=== PATIENT | male | born 1955 | race Hispanic/Latino ===

== ENCOUNTER 2018-03-07 15:08 | Emergency (ER) | payer OTHER ==
--- NOTE | 2018-03-07 16:50 | RAD REPORT ---
EXAM DESCRIPTION: RAD - Tib Fib Left - 03/07/2018 4:36 pm CLINICAL HISTORY: Dog bite to the leg COMPARISON: None. FINDINGS: No fracture is identified. There is no dislocation or periosteal reaction noted. No acute or destructive bone process seen. Surgical hardware is in place in the proximal tibia and shaft. Bone remodeling is present from this prior fracture repair. No active process suspected. No air or foreign body seen in the soft tissues. Degenerative changes are present at the knee joint. IMPRESSION: No acute bone finding. No air or foreign body in the soft tissues.
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
[2018-03-07 17:18] VITALS: TEMP 97.3
[2018-03-07 17:19] VITALS: BP 123/73; O2SAT 99
== END 2018-03-07 17:11 | disposition home or self-care (01) ==
LOC: ER 15:08
DX: S81.832A Puncture wound without foreign body, left lower leg, initial encounter (principal); W54.0XXA Bitten by dog, initial encounter; Y93.9 Activity, unspecified; Y92.009 Unspecified place in unspecified non-institutional (private) residence as the place of occurrence of the external cause; F17.210 Nicotine dependence, cigarettes, uncomplicated
CPT/HCPCS: 99283

== ENCOUNTER 2018-04-01 11:27 | Emergency (ER) | payer OTHER ==
[2018-04-01 12:36] LABS: Absolute Lymphocytes (CBC) 0.6 K/uL (0.7-4.9); Absolute Monocytes 0.6 K/uL (0.1-1.3); Absolute Neutrophil 4.6 K/uL (1.8-8.0); Basophils % 0.1 % (0-1.3); Eosinophils % 0.1 % (0-4.4); Hematocrit 43.5 % (39.6-49.0); Lymphocytes % 9.9 % (15.3-44.8); MCH 30.5 pg (27.0-35.0); MCV 85.3 fL (80-100); MPV 8.4 fL (7.6-11.3); Monocytes % 9.6 % (3.3-12.3); RBC Red Blood Cell Count 5.11 M/uL (4.33-5.43)
[2018-04-01 12:38] LABS: Albumin 3.5 g/dL (3.4-5.0); Bilirubin Direct 0.1 mg/dL (0-0.2); Bilirubin Total 0.6 mg/dL (0.2-1.0); Potassium 3.2 mmol/L (3.5-5.1); Protein, Total 7.6 g/dL (6.4-8.2)
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
[2018-04-01 13:36] VITALS: BP 155/90; TEMP 98.5; O2SAT 97
== END 2018-04-01 13:29 | disposition home or self-care (01) ==
LOC: ER 11:27
DX: R10.9 Unspecified abdominal pain (principal); F17.210 Nicotine dependence, cigarettes, uncomplicated
CPT/HCPCS: 36415; 80048; 80076; 83690; 85025; 99283

== ENCOUNTER 2020-01-09 12:25 | Emergency (ER) | payer OTHER ==
[2012-02-27 19:50] VITALS: BP 127/85
--- NOTE | 2020-01-09 12:35 | ER ---
Nurse's Notes [facility] Name: Librado Valdez Age: 64 yrs Sex: Male : 1955 Arrival Date: 01/09/2020 Time: 12:26 Bed Waiting Private MD: Diagnosis: ED Course: 01/08 12:26 Patient arrived in ED. am2 Administered Medications: No medications were administered Outcome: 12:35 Patient left the ED. ll1 Signatures: Elaina Mullen am2 Rene Bravo, RN RN ll1
== END 2020-01-09 12:35 | disposition left against medical advice (07) ==
LOC: ER 12:25
DX: Z53.21 Procedure and treatment not carried out due to patient leaving prior to being seen by health care provider (principal)

== ENCOUNTER 2020-06-26 12:33 | Inpatient (IN) | payer OTHER ==
[2020-06-26 13:28] LABS: Absolute Lymphocytes (CBC) 1.2 K/uL (0.7-4.9); Basophils % 0.4 % (0-1.3); Hematocrit 44.1 % (39.6-49.0); Lymphocytes % 12.4 % (15.3-44.8); MPV 9.1 fL (7.6-11.3); RBC Red Blood Cell Count 5.04 M/uL (4.33-5.43)
[2020-06-26 13:56] LABS: Albumin 3.7 g/dL (3.4-5.0); Bilirubin Direct 0.1 mg/dL (0-0.2); Bilirubin Total 0.7 mg/dL (0.2-1.0); Potassium 4.3 mmol/L (3.5-5.1); Protein, Total 7.5 g/dL (6.4-8.2)
--- NOTE | 2020-06-26 13:59 | RAD REPORT ---
EXAM DESCRIPTION: CT - Abdomen Pelvis W Contrast - 06/26/2020 1:42 pm CLINICAL HISTORY: Abdominal pain COMPARISON: none. TECHNIQUE: Computed axial tomography of the abdomen pelvis was obtained. 100 cc Isovue-300 was admin istered intravenously. Oral contrast was not requested which limits evaluation of bowel. All CT scans are performed using dose optimization technique as appropriate and may include automated exposure control or mA/KV adjustment according to patient size. FINDINGS: The liver, spleen, pancreas, adrenal and left kidney appear unremarkable. Small nonobstruc ting right renal calculi There is no evidence of diverticulitis. Large left inguinal hernia contains sigmoid colon. Large right inguinal hernia contains fat. Colon within the lower anterior mediastinum presumably a colonic interposition for esophageal resecti on. Moderate dilatation of jejunum and portion of ileum. Distal ileum normal caliber. This is compatible with an obstruction. Prostate gland is moderately enlarged Ventral hernia several centimeters above the emboli kiss contains fat. The neck measures 2 centimeter s Metallic densities right pelvis IMPRESSION: Obstruction in the region of the mid ileum Large left inguinal hernia contains colon Large right inguinal hernia contains fat
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
[2020-06-26] MEDS ORDERED: NA CHLORIDE 0.9% 1,000 ML ONE (14:49)
[2020-06-26] MEDS ORDERED: MORPHINE 4 MG/ML SYR ONE (14:49)
[2020-06-26] MEDS ORDERED: ONDANSETRON 4 MG/2 ML VIAL ONE (14:49)
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
[2020-06-26] MEDS ORDERED: ONDANSETRON 4 MG/2 ML VIAL IV PRN (16:51)
[2020-06-26] MEDS ORDERED: SODIUM CHLORIDE 0.9% 10ML INJ IV PRN (16:51)
[2020-06-26] MEDS ORDERED: ACETAMINOPHEN 650MG/RECT SUPP PR PRN (16:51)
[2020-06-26] MEDS ORDERED: ACETAMINOPHEN 500 MG TAB PO PRN (16:51)
[2020-06-26] MEDS ORDERED: MORPHINE 2 MG/ML SYR IV PRN (16:51)
[2020-06-26] MEDS: D5 0.9 NS 1,000 ML IV SCH (17:06)
[2020-06-26 17:29] VITALS: BMI 25.7
[2020-06-26 18:40] LABS: Urine Appearance CLEAR; Urine Bilirubin NEGATIVE (NEG); Urine Blood NEGATIVE (NEG); Urine Color YELLOW; Urine Glucose NEGATIVE (NEG); Urine Protein NEGATIVE (NEG); Urine Specific Gravity >=1.030 (1.005-1.030); Urine Urobilinogen 0.2 mg/dL (0.2-1.0)
[2020-06-26 18:42] LABS: Urine Microscopic Reflex NO UMIC
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
[2020-06-27] MEDS: D5 0.9 NS 1,000 ML IV SCH ×4 (03:00→22:51)
[2020-06-27 05:47] LABS: Absolute Lymphocytes (CBC) 1.4 K/uL (0.7-4.9); Basophils % 0.5 % (0-1.3); Hematocrit 40.6 % (39.6-49.0); MPV 9.5 fL (7.6-11.3)
[2020-06-27 06:01] LABS: Magnesium 2.3 mg/dL (1.8-2.4); Potassium 3.6 mmol/L (3.5-5.1)
[2020-06-27] MEDS: ENOXAPARIN 40 MG/0.4 ML SQ SCH (08:43)
[2020-06-27] MEDS ORDERED: PANTOPRAZOLE 40 MG INJ IVP SCH (09:00)
[2020-06-27] MEDS ORDERED: KCL 20 MEQ/100 mL IVPB 20 MEQ/100 ML BAG IV SCH (09:00)
--- NOTE | 2020-06-27 11:09 | P.PN ---
Subjective Date of Service: 06/27/20 Primary Care Provider: none Chief Complaint: Small-bowel obstruction Subjective: Improving (Patient is doing much better denies any complain he is passing gas) Review of Systems Unremarkable Physical Examination - Vital Signs Temperature: 97.3 F Blood Pressure: 123/72 Pulse: 55 Respirations: 14 Pulse Ox (%): 95 - Physical Exam General: Alert, In no apparent distress, Oriented x3 Gastrointestinal: Normal bowel sounds, Tenderness (Minimal tenderness in the left lower quadrant) - Studies Laboratory Data (last 24 hrs) 06/26/20 13:20: WBC 10.0, Hgb 15.3, Hct 44.1, Plt Count 217 06/26/20 13:20: Sodium 138, Potassium 4.3, BUN 13, Creatinine 1.12, Glucose 112 H, Total Bilirubin 0.7, AST 24, ALT 25, Alkaline Phosphatase 80, Lipase 57 L Assessment & Plan - Problems (Diagnosis) (1) Small bowel obstruction Current Visit: Yes Status: Acute Plan: Patient is 64 years of age admitted with small-bowel obstruction this currently doing much better had obstruction in the mid ileum with a large inguinal hernia as CBC chemistries unremarkable apart from mild elevation of pro calcitonin vital signs all stable discuss with general surgery regarding further management possible discharge. ELAINE Bills. advance diet. for now repeat xray. Decsion about discharge based on ability to tolerate full meal this evening, KUB Discharge Plan: Home Plan to discharge in: 24 Hours
--- NOTE | 2020-06-27 19:13 | PN ---
Diagnoses: History of bowel obstruction. Subjective: Patient is doing better, ambulating. No shortness of breath. No chest pain. No fever. No melena. No hematochezia. He says he is passing flatus since yesterday and he feels better. He wants some diet. Physical Examination: Chest: Clear. Abdomen: Soft and depressible. No guarding or rebound. Laboratory Data: Blood work shows WBC count of 4.6. Plan: Clear liquid diet. If he fails that, then once again n.p.o. He wants to be discharged this a fternoon if possible, but with bowel obstruction and not been able to fit as fast as he wants, I meche valles it is going too fast. We will see how he does today with diet and then we will proceed according ly. PRATIK/IFTIKHAR Voice ID: [id number] Report ID: [id number]
[2020-06-28] MEDS: D5 0.9 NS 1,000 ML IV SCH ×2 (03:56→08:51)
[2020-06-28 06:28] LABS: Absolute Lymphocytes (CBC) 1.8 K/uL (0.7-4.9); Basophils % 0.5 % (0-1.3); Hematocrit 42.2 % (39.6-49.0); Lymphocytes % 33.6 % (15.3-44.8); MPV 9.5 fL (7.6-11.3); RBC Red Blood Cell Count 4.73 M/uL (4.33-5.43)
[2020-06-28 06:33] LABS: Magnesium 2.3 mg/dL (1.8-2.4); Potassium 3.6 mmol/L (3.5-5.1)
[2020-06-28] MEDS ORDERED: POTASSIUM 25 MEQ EFFERV TAB PO ONE (09:00)
--- NOTE | 2020-06-28 09:08 | RAD REPORT ---
EXAM DESCRIPTION: RAD - Abdomen Single View - 06/28/2020 8:53 am CLINICAL HISTORY: follow up bowel obstruction COMPARISON: Abdomen Pelvis W Contrast dated 06/26/2020 FINDINGS: No free air or pneumatosis have developed. Colon bowel gas is seen overlying the medial ri ght lung base. This is a known area of herniation or eventration matching the CT study. Bowel gas in the left inguinal canal is noted. This matches the bowel containing left inguinal hernia on the CT st udy. Small bowel dilatation pattern is not substantially different from the CT study. IMPRESSION: No free air or pneumatosis have developed. Small bowel dilatation pattern not significan tly different from prior day study. Diaphragm and left inguinal hernia changes are again noted.
[2020-06-28 09:22] VITALS: O2SAT 98
[2020-06-28] MEDS: ENOXAPARIN 40 MG/0.4 ML SQ SCH (09:27)
--- NOTE | 2020-06-28 10:05 | P.PN ---
Subjective Date of Service: 06/28/20 Primary Care Provider: none Chief Complaint: Small-bowel obstruction Subjective: Improving (Improving still complaining of abdominal discomfort able to tolerate a meal has been passing gas no significant dilatation on KUB) Review of Systems Unremarkable Physical Examination - Vital Signs Temperature: 96.4 F Blood Pressure: 136/66 Pulse: 59 Respirations: 17 Pulse Ox (%): 95 - Physical Exam General: Alert, In no apparent distress, Oriented x3 Respiratory: Clear to auscultation bilaterally Cardiovascular: No edema Gastrointestinal: Normal bowel sounds, Soft and benign, Non-distended, No tenderness - Studies Laboratory Data (last 24 hrs) 06/28/20 05:48: Sodium 142, Potassium 3.6, BUN 4 L, Creatinine 0.86, Glucose 89, Magnesium 2.3 06/28/20 05:48: WBC 5.3 D, Hgb 14.3, Hct 42.2, Plt Count 188 Microbiology Data (last 24 hrs): 06/26/20 18:20 Nasopharnyx Coronavirus COVID-19 PCR - Final Assessment & Plan - Problems (Diagnosis) (1) Small bowel obstruction Current Visit: Yes Status: Acute Plan: Patient admitted with small-bowel obstruction tolerating a diet he has had multiple surgeries before the UB does not show any significant change discharge instructions as per Dr. Bills vital signs are all stable
--- NOTE | 2020-06-28 14:12 | PN ---
Date of Progress Note: 06/28/2020 Diagnosis: Small bowel obstruction. Subjective: The patient is feeling better, had a bowel movement, passing flatus and tolerating diet. I noticed that he is taking some diet from outside. He was advised the importance to be compliant with treatment and improper diet. Objective: Abdomen: Benign. Extremities: No calf tenderness. The patient feels good. Laboratory Data: WBC count is 5.3. Plan: The patient wants to go home. 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 He wants to go home, so we are going to leave the restrictions and the primary doctor will send him home. PRATIK/IFTIKHAR Voice ID: [id number] Report ID: [id number]
--- NOTE | 2020-06-28 18:01 | P.DS ---
Admission Date: 06/28/20 Discharge Date: 06/28/20 Primary Care Provider: none Disposition: ROUTINE DISCHARGE Discharge Condition: GOOD Reason for Admission: Small-bowel obstruction Consultations: Marcie - Problems (1) Small bowel obstruction Status: Acute Brief History of Present Illness: AW subacute small bowel obstruction Hospital Course: Admitted. S/B Dr. Bills. Pain improved. Stableat the time of discharge. To F/u with Dr. Bills Vital Signs/Physical Exam: Temp Pulse Resp BP Pulse Ox 97.9 F 54 17 153/80 H 97 06/28/20 12:00 06/28/20 12:00 06/28/20 12:00 06/28/20 12:00 06/28/20 12:00 Laboratory Data at Discharge: WBC 5.3 K/uL (4.3-10.9) D 06/28/20 05:48 Hgb 14.3 g/dL (13.6-17.9) 06/28/20 05:48 Hct 42.2 % (39.6-49.0) 06/28/20 05:48 Plt Count 188 K/uL (152-406) 06/28/20 05:48 Sodium 142 mmol/L (136-145) 06/28/20 05:48 Potassium 3.6 mmol/L (3.5-5.1) 06/28/20 05:48 BUN 4 mg/dL (7-18) L 06/28/20 05:48 Creatinine 0.86 mg/dL (0.55-1.3) 06/28/20 05:48 Glucose 89 mg/dL (74-106) 06/28/20 05:48 Magnesium 2.3 mg/dL (1.8-2.4) 06/28/20 05:48 Total Bilirubin 0.7 mg/dL (0.2-1.0) 06/26/20 13:20 AST 24 U/L (15-37) 06/26/20 13:20 ALT 25 U/L (12-78) 06/26/20 13:20 Alkaline Phosphatase 80 U/L (45-117) 06/26/20 13:20 Lipase 57 U/L (73-393) L 06/26/20 13:20 Home Medications: NK [No Home Meds] 06/26/20 Followup: Onur Bills MD [ACTIVE - CAN ADMIT] - NONE,NONE [Primary Care Provider] -
[2020-06-28 18:02] VITALS: BP 136/66; TEMP 96.4
== END 2020-06-28 14:18 | disposition home or self-care (01) | DRG 395 ==
LOC: ER 12:33 → ERHOLD 14:48 → 2ND 16:08 → OBSVTOIN 06-28 06:24
PROVIDERS: ADMIT Family Medicine; ATTEND Internal Medicine Sleep Medicine
DX: K40.00 Bilateral inguinal hernia, with obstruction, without gangrene, not specified as recurrent (principal); F17.210 Nicotine dependence, cigarettes, uncomplicated; K59.89 Other specified functional intestinal disorders; K40.90 Unilateral inguinal hernia, without obstruction or gangrene, not specified as recurrent; K43.9 Ventral hernia without obstruction or gangrene; F41.8 Other specified anxiety disorders; Z79.899 Other long term (current) drug therapy; Z91.5 Personal history of self-harm; Z20.828 Contact with and (suspected) exposure to other viral communicable diseases
CPT/HCPCS: 36415; 74018; 74177; 80048; 80076; 81003; 82565; 83605; 83690; 83735; 84145; 85025; 87040; 96361; 96374; 96375; 99285; C9113; G0378; J1650; J2405; J3480; J7030; J7042; Q9967; U0002

== ENCOUNTER 2021-10-19 16:29 | Emergency (ER) | payer OTHER ==
--- OUTSIDE RECORDS SUMMARY | 2021-10-19 16:32 | XMS REPORT | Continuity of Care Document ---
:1955 Author Organization [facility] t Address [facility] Michael [address] [place] [id number] Care Team Providers Name Role Phone GLENDA ROD Attending Clinician Unavailable NICOLÁS PEARSON Attending Clinician Unavailable Payers Payer Name Policy Type Policy Number Effective Date Expiration Date S price [employer] TeQ [id number] 2021 MEDICARE 00:00:00 [employer] [id number] 2021 2024 MEDICAID STAR PLUS 00:00:00 00:00:00 OON Problems This patient has no known problems. Allergies, Adverse Reactions, Alerts This patient has no known allergies or adverse reactions. Medications This patient has no known medications. Procedures This patient has no known procedures. Encounters Start End Encounter Admission Attending Care Care Encounter Source Date/Time Date/Time Type Type Clinicians Facility Department ID 2021-09-15 Outpatient [facility] [id number] [place] 15:17:24 Health [id number] [place] 11:21:03 GLENDA Health 2021-09-07 Outpatient [facility] [id number] [place] 15:23:01 Health 2021-09-07 Outpatient LILI, [facility] [id number] [place] 09:26:[address] [facility] Results This patient has no known results.
[2021-10-19 18:47] LABS: Absolute Lymphocytes (CBC) 1.8 K/uL (0.7-4.9); Hematocrit 40.6 % (39.6-49.0); Lymphocytes % 24.4 % (15.3-44.8); RBC Red Blood Cell Count 4.89 M/uL (4.33-5.43)
[2021-10-19 19:14] LABS: Potassium 3.5 mmol/L (3.5-5.1)
--- NOTE | 2021-10-19 19:28 | RAD REPORT ---
EXAM DESCRIPTION: [employer]3 7:17 pm CLINICAL HISTORY: left leg pain and swelling. COMPARISON: 2018 FINDINGS: Patient has a palpable area within the region of the left bobo. A a superficial fluid jonatan ection measuring 3 x 0.5 x 3.6 centimeters is present. Left common femoral, superficial femoral, popliteal and posterior tibial veins are compressible and demonstrate augmentation. Doppler demonstrates good flow. Grayscale, color and spectral analysis performed on all vessels IMPRESSION: No evidence of deep venous thrombosis involving the left lower extremity. 3.6 centimeter fluid collection subcutaneous tissues left bobo presumably an abscess
--- NOTE | 2021-10-19 19:31 | RAD REPORT ---
EXAM DESCRIPTION: Yenny Bueno Left10/19/2021 7:19 pm CLINICAL HISTORY: Left leg pain FINDINGS: Plate and screws affix old femoral and tibial fractures. No acute fracture seen. Old fibular fracture No bony destructive lesion
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
[2021-10-19 22:51] VITALS: TEMP 98.1
[2021-10-19 22:53] VITALS: O2SAT 100
[2021-10-19 22:54] VITALS: BP 154/87
== END 2021-10-19 20:45 | disposition home or self-care (01) ==
LOC: ER 16:29
DX: L03.116 Cellulitis of left lower limb (principal); F17.210 Nicotine dependence, cigarettes, uncomplicated
CPT/HCPCS: 36415; 80048; 85025; 93971; 99283

== ENCOUNTER 2023-04-02 00:05 | Emergency (ER) | payer OTHER ==
--- OUTSIDE RECORDS SUMMARY | 2023-04-02 00:08 | XMS REPORT | Continuity of Care Document ---
:1955 Author Organization [facility] t Address [address] [address] Care Team Providers Name Role Phone VIVIANE JOHNSON Attending Clinician Unavailable GLENDA ROD Attending Clinician Unavailable NICOLÁS PEARSON Attending Clinician Unavailable Payers Payer Name Policy Type Policy Number Effective Date Expiration Date S price [employer] [id number] 2021 MEDICARE 00:00:00 [employer] [id number] 2021 2024 MEDICAID STAR PLUS 00:00:00 00:00:00 OON Problems This patient has no known problems. Allergies, Adverse Reactions, Alerts This patient has no known allergies or adverse reactions. Medications This patient has no known medications. Procedures This patient has no known procedures. Encounters Start End Encounter Admission Attending Care Care Encounter Source Date/Time Date/Time Type Type Clinicians Facility Department ID 2022-06-10 Outpatient [facility] [id number] [place] 11:16:21 [id number] [facility] 2022-06-08 Outpatient [facility] [id number] [place] 09:20:16 [id number] [facility] 2021-12-03 Outpatient [facility] [id number] [place] 07:33:37 [id number] [facility] 2021-12-01 Outpatient [facility] [id number] [place] 09:56:40 [id number] [facility] 2021-11-02 Outpatient ALEX [facility] [id number] [place] 01:03:08 VIVIANE [id number] [facility] 2021-10-25 Outpatient MARCEL [facility] [id number] [place] 09:30:26 GLENDA [id number] [facility] 2021-10-21 Outpatient [facility] [id number] [place] 07:58:51 [id number] [facility] 2021-09-15 Outpatient [facility] [id number] [place] 15:17:24 Health 2021 Outpatient MARCEL, [facility] [id number] [place] 11:21:03 GLENDA [facility] 2021-09-07 Outpatient [facility] [id number] [place] 15:23:01 [facility] 2021[facility]09-07 [id number] [place] 09:26:54 [facility] Results This patient has no known results.
[2023-04-02 00:58] LABS: Absolute Lymphocytes (CBC) 1.9 K/uL (0.7-4.9); Hematocrit 43.3 % (39.6-49.0); Lymphocytes % 26.2 % (15.3-44.8); MCV 84.7 fL (80-100); MPV 8.4 fL (7.6-11.3); Platelets 196 thou/uL (152-406); RBC Red Blood Cell Count 5.11 M/uL (4.33-5.43)
[2023-04-02] MEDS ORDERED: MORPHINE 4 MG/ML SYR ONE ×2 (01:03→02:56)
[2023-04-02] MEDS ORDERED: NA CHLORIDE 0.9% 1,000 ML ONE ×2 (01:04→04:03)
[2023-04-02] MEDS ORDERED: ONDANSETRON 4 MG/2 ML VIAL ONE (01:04)
[2023-04-02] MEDS ORDERED: KETOROLAC 30 MG/ML INJ ONE ×2 (01:04→04:03)
[2023-04-02 01:17] LABS: Albumin 3.6 g/dL (3.4-5.0); Bilirubin Total 0.4 mg/dL (0.2-1.0); Potassium 3.6 mEq/L (3.5-5.1); Protein, Total 7.3 g/dL (6.4-8.2)
[2023-04-02 03:21] LABS: Specific Gravity 1.014 (1.005-1.030); Urine Bacteria None Seen /HPF (<20); Urine Bilirubin NEGATIVE (Negative); Urine Blood 2+ (Negative); Urine Clarity Clear (Clear); Urine Color Colorless (Yellow); Urine Glucose NEGATIVE (Negative); Urine Mucus Slight /HPF (None Seen); Urine Protein NEGATIVE (Negative); Urine Urobilinogen Normal (Normal)
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
[2023-04-02] MEDS ORDERED: TAMSULOSIN 0.4 MG SR CAP ONE (04:02)
[2023-04-02] MEDS ORDERED: HYDROMORPHONE HCL 1 MG/ML INJ ONE (04:02)
[2023-04-02] MEDS ORDERED: CEFTRIAXONE 1000 MG/VIAL ONE (04:03)
[2023-04-02 07:42] VITALS: O2SAT 92
[2023-04-02 07:58] VITALS: BP 151/84
--- NOTE | 2023-04-02 17:54 | RAD REPORT ---
EXAM DESCRIPTION: CT - Stone Protocol - 04/02/2023 6:54 am CLINICAL HISTORY: ABD PAIN TECHNIQUE: Contiguous axial images obtained through the abdomen and pelvis without IV contrast. Sagi ttal and coronal reformatted images were provided. This exam was performed according to our departmental dose-optimization program, which includes autom ated exposure control, adjustment of the mA and/or kV according to patient size and/or use of iterati ve reconstruction technique. COMPARISON: May 2020 FINDINGS: Lung bases: Atelectatic changes in the lung bases. Several calcified granuloma. Liver: Unremarkable Gallbladder and biliary system: Unremarkable Pancreas: Unremarkable Spleen: Unremarkable Adrenals: Unremarkable Kidneys: 7 mm stone in the distal right ureter with proximal right hydroureter and right hydronephros is. Additional stones in the right kidney measuring less than 3 mm. Gl: Segment of colon extending from the stomach to the anterior mediastinum, partially visualized and similar to the prior examination. Surgical changes in the epigastrium consistent with prior esophagectomy. No obstruction. No appreciable mucosal thickening. Appendix: No findings to suggest acute appendicitis. Urinary bladder: Unremarkable Reproductive: Enlarged prostate. Lymph nodes: No pathologically enlarged lymph nodes. Peritoneum: No focal fluid collection. No free air. Vessels: No abdominal aortic aneurysm. Abdominal wall: Periumbilical ventral hernia with herniation of small bowel and no evidence of compli cations. Large left inguinal hernia with herniation of sigmoid colon similar to the prior examination with no evidence of complications. Open right inguinal ring with no herniated segments of bowel. Bones: UnremarkableNo acute bony pathology IMPRESSION: 1. 7 mm stone in the distal right ureter with proximal right hydroureter and right hyd ronephrosis. 2. Additional stones in the right kidney measuring less than 3 mm. 3. Periumbilical ventral hernia with herniation of small bowel and no evidence of complications. 4. Large left inguinal hernia with herniation of sigmoid colon similar to the prior examination wit h no evidence of complications. 5. Surgical changes in the epigastrium consistent with prior esophagectomy. Segment of colon extend ing from the stomach to the anterior mediastinum, partially visualized and similar to the prior exami nation. Electronically signed by: Fransisco Toney MD 04/02/2023 3:10 AM CDT Due to temporary technical issues with the PACS/Fluency reporting system, reports are being signed by the in house radiologists without review as a courtesy to insure prompt reporting. The interpreting radiologist is fully responsible for the content of the report.
== END 2023-04-02 07:34 | disposition short-term general hospital (02) ==
LOC: ER 00:05
DX: N13.2 Hydronephrosis with renal and ureteral calculous obstruction (principal); F17.210 Nicotine dependence, cigarettes, uncomplicated
CPT/HCPCS: 85025; 81001; 36415; 83690; 80053; 76377; 74176; 99284; J1170; J2405; J7030 ×2; J0696

== ENCOUNTER 2023-06-03 07:24 | Emergency (ER) | payer OTHER ==
--- OUTSIDE RECORDS SUMMARY | 2023-06-03 07:28 | XMS REPORT | Continuity of Care Document ---
:1955 Author Organization [facility] t Address [address] [place] [address] [address] [place] [address] Care Team Providers Name Role Phone No, Pcp [facility] Primary Care Physician Unavailable RAVI STRICKLAND Attending Clinician Unavailable VIVIANE JOHNSON Attending Clinician Unavailable GLENDA ROD Attending Clinician Unavailable NICOLÁS PEARSON Attending Clinician Unavailable Ravi Strickland Attending Clinician Unavailable Monica Attending Clinician Unavailable BIBI VARGAS Attending Clinician Unavailable PARVIZ SOARES Attending Clinician Unavailable Bibi Vargas MD Attending Clinician Parviz Soares MD Attending Clinician [phone] Fransisco Teixeira MD Attending Clinician Nikolas Myers CRNA Attending Clinician [phone] Ravi Strickland MD Attending Clinician BIBI VARGAS Admitting Clinician Unavailable KINGS MCCOY Admitting Clinician Unavailable Monica Admitting Clinician Unavailable PARVIZ SOARES Admitting Clinician Unavailable Payers Payer Name Policy Type Policy Number Effective Date Expiration Date S price [facility] [id number] 2022 [facility] 00:00:00 [employer] [id number] 2021 MEDICARE 00:00:00 [employer] [id number] 2021 2024 MEDICAID [place] 00:00:00 00:00:00 [place] ([place] [id number] 2021 REPLACEMENT/ADVANTAG 00:00:00 E - O) MEDICARE A B [id number] Problems Condition Condition Condition Status Onset Resolution Last Treating Co mments Source Name Details Category Date Date Treatment Clinician Date Acute Acute Disease Active [facility] unilateral 04-02 Rosmery kes obstructiv obstructiv 00:00: Me dical e uropathy e uropathy 00 Ce nter Allergies, Adverse Reactions, Alerts Allergy Allergy Status Severity Reaction(s) Onset Inactive Treating Comm ents Source Name Type Date Date Clinician No Known DA Active U 2004-0 [facility] 00:00: [address] No Known DA Active U 2004-0 [facility] Drug [facility]18 [place] [facility] 00:00: [address] No Known DA Active U 2004-0 [facility] Food 2-18 [place] [facility] 00:00: [address] No Known DA Active U 2004-0 [facility] Other 2-18 [place] [facility]erg[facility] 00:00: [address] No Known DA Active U 2003-0 [facility] Drug 2-13 [facility] Intolera 00:00: [address] NO KNOWN Allergy Active [facility] Social History Social Habit Start Date Stop Date Quantity Comments Source History SDOH [facility] History of tobacco Smokes tobacco [facility] use daily [facility] Alcohol intake 2023-04-04 2023-04-04 [facility]00 of alcohol Medical Center (finding) Cigarette 2023-04-02 2023-04-[address] [facility] pack-years 00:00:00 00:00:00 Medical Center Tobacco use and 2023-04-02 2023-04-02 Smokeless tobacco [facility] exposure 00:00:00 00:00:00 non-user Medical Center History SDOH 2023-04-02 2023-04-[address] [facility] Transport Med 00:00:00 00:00:[address] History [facility] 2023-04-02 2023-04-02 2 [facility] Unable to 00:00:00 00:00:00 Medical Center Pay History [facility] 2023-04-02 2023-04-02 1 [facility] Places 00:00:00 00:00:00 Medical Ce nter Lived History [facility] 2023-04-02 2023-04-02 2 [facility] Homeless 00:00:00 00:00:00 Medical Center Last Year Cigarettes smoked 2023-04-02 2023-04-02 [facility] current (pack per 00:00:00 00:00:00 Medical Center day) - Reported Sex Ass[birth year] At [birth year] [facility] 00:00:00 00:00:00 Medical Center Smoking Status Start Date Stop Date Source Current Every Day Smoker [facility] Urology Medications Ordered Filled Start Stop Current Ordering Indication Dosage Frequency Signature Comments Components Source Medication Medication Date Date Medication? Clinician (SIG) Name Name HYDROcodone Yes Status post 1{tbl} Take [address] [facility] [address] -acetaminop 04-02 cystoscopy tablet by Yonatan gallagher (NORCO 00:00: with mouth Medica l 5-325) 00 ureteral every 8 Center 5-325 mg stent (eight) per tablet placement hours as needed for Pain. Max Daily Amount: 3 tablets bisacodyL 2022- No 5mg Take 1 [facility] (DULCOLAX) 04-02 tablet (5 Andrez es 5 mg EC 00:00: 23:59 mg total) Medi brooks tablet 00 :00 by mouth Center daily as needed for Constipati on for up to 30 days. tamsulosin 2022- No .4mg QD Take [address] (FLOMAX) 04-02 capsule [facility]ukes 0.4 mg Cap 00:00: 23:59 (0.4 mg Med ical 24 hr 00 :00 total) by Center capsule mouth daily for 14 days. bisacodyl 5 bisacodyl 5 No bisacodyl [place] mg mg 5 mg [facility] tablet,felix tablet,felix tablet,del Urology yed release yed release ayed TAKE 1 TAKE 1 release TABLET BY TABLET BY TAKE 1 MOUTH DAILY MOUTH DAILY TABLET BY NEEDED NEEDED MOUTH FOR FOR DAILY CONSTIPATIO CONSTIPATIO NEEDED FOR N N CONSTIPATI ON hydrocodone hydrocodone No hydrocodon [place] 5 5 e 5 [facility] mg-acetamin mg-acetamin mg-acetami Urology ophen 325 ophen 325 nophen 325 mg tablet mg tablet mg tablet TAKE 1 TAKE 1 TAKE 1 TABLET BY TABLET BY TABLET BY MOUTH EVERY MOUTH EVERY MOUTH 8 HOURS 8 HOURS EVERY 8 NEEDED NEEDED HOURS NEEDED tamsulosin tamsulosin No tamsulosin [place] 0.4 mg 0.4 mg 0.4 mg [facility] capsule capsule capsule Urolog y TAKE 1 TAKE 1 TAKE 1 CAPSULE BY CAPSULE BY CAPSULE BY MOUTH DAILY MOUTH DAILY MOUTH DAILY Vital Signs Vital Name Observation Time Observation Value Comments Source BP Systolic 2023-05-03 00:00:00 143 mm[Hg] [facility] BP Diastolic 2023-05-03 00:00:00 87 mm[Hg] [facility] Body Weight 2023-05-03 00:00:00 128 [lb_av] [facility] BMI (Body Mass Index) 2023-05-03 00:00:00 21.3 kg/m2 [facility] Height 2023-05-03 00:00:00 65 [in_i] [facility] HEIGHT 2023-04-02 12:00:00 162.6 cm WEIGHT 2023-04-02 12:00:00 77.111 kg HEIGHT 2023-04-02 12:00:00 162.6 cm WEIGHT 2023-04-02 12:00:00 77.111 kg HEIGHT 2023-04-02 12:00:00 162.6 cm WEIGHT 2023-04-02 12:00:00 77.111 kg Body height 2023-04-02 12:00:00 162.6 cm [facility] Body weight 2023-04-02 12:00:00 77.111 kg [facility] BMI 2023-04-02 12:00:00 29.18 kg/m2 [facility] Oxygen saturation in 2023-04-02 11:40:00 98 /min [facility] Arterial blood by Medical Ce nter Pulse oximetry Systolic blood 2023-04-02 11:40:00 141 mm[Hg] [facility] Diastolic blood 2023-04-02 11:40:00 75 mm[Hg] [facility] Heart rate 2023-04-02 11:40:00 63 /min [facility] Respiratory rate 2023-04-02 11:40:00 15 /min [facility] Body temperature 2023-04-02 10:49:00 36.72 Kassidy [facility] Procedures Procedure Date / Time Performed Performing Clinician Sour e unlisted imaging order 2023-05-03 00:00:00 [place] [facility], abdomen + pelvis, 2023-05-03 00:00:00 [place] [facility] w/o contrast Urology [place] FLUORO NON-SPECIFIC 2023-04-02 10:43:00 Ravi Strickland I [facility] UP TO 1 HOUR Center CYSTOSCOPY, WITH 2023-04-02 10:08:00 Ravi Strickland [facility] URETERAL STENT Center INSERTION Plan of Care Planned Activity Planned Date Details Comments Source Diagnostic Test 2023-05-03 urinalysis, dipstick [place] [facility] Pending 00:00:00 [code = urinalysis, Urology dipstick] Future Scheduled Test 2023-03-31 Influenza Vaccine (#1) [facility] 00:00:00 [code = Influenza Medical Ce nter Vaccine (#1)] Future Scheduled Test 2022-07-[address] [facility] 00:00:00 (12+) [code = [facility] DEPRESSION SCREENING (12+)] Future Scheduled Test 2022-07-31 FALLS RISK SCREENING [facility] 00:00:00 [code = FALLS RISK Medical C enter SCREENING] Future Scheduled Test 2022-07-31 Medicare IPPE (WELCOME [facility] 00:00:00 TO MEDICARE) [code = [facility] Medicare IPPE (WELCOME TO MEDICARE)] Future Scheduled Test [address] [facility] 00:00:00 aneurysm screening Medical C enter (procedure) [code = 109541020] Future Scheduled Test 2004 [facility] lung (procedure) [code = 213175002] Future Scheduled Test 2004 SHINGLES VACCINES ([address] [facility] 00:00:00 of 2) [code = SHINGLES Medic al Center VACCINES (1 of 2)] Future Scheduled Test 1973 DTAP/TDAP/TD VACCINES [facility] 00:00:00 (1 - Tdap) [code = Medical C enter DTAP/TDAP/TD VACCINES (1 - Tdap)] Future Scheduled Test 1972 HEPATITIS C SCREENING [facility] 00:00:00 [code = HEPATITIS C Medical Center SCREENING] Future Scheduled Test [address] [facility] 00:00:00 Counseling and Medical Cente r Screening (12+) [code = Tobacco Cessation Counseling and Screening (12+)] Future Scheduled Test 1960 PNEUMOCOCCAL 65+ YRS [facility] 00:00:00 (1 - PCV) [code = Medical Ce nter PNEUMOCOCCAL 65+ YRS (1 - PCV)] Future Scheduled Test 1956-03-13 COVID-19 VACCINE (#1) [facility] 00:00:00 [code = COVID-[address] VACCINE (#1)] Future Scheduled Test [address] [facility] 00:00:00 (combo) [code = CT Medical C enter Colonography (combo)] Future Scheduled Test 1955 [facility] 00:[facility]:00 malignant neoplasm of Medica l Center colon (procedure) [code = 984406297] Future Scheduled Test 1955 [facility] 00:[facility]:00 malignant neoplasm of Medica l Center colon (procedure) [code = 141554126] Future Scheduled Test 1955 [facility] 00:[facility]:00 malignant neoplasm of Medica l Center colon (procedure) [code = 231105451] Future Scheduled Test 1955 [facility] 00:[facility]:00 malignant neoplasm of Medica l Center colon (procedure) [code = 612949997] Future Scheduled Test 1955 Sigmoidoscopy [code = [facility] 00:00:00 Sigmoidoscopy] Medical Cente r Instructions [facility] Urology Encounters Start End Encounter Admission Attending Care Care Encounter Source Date/Time Date/Time Type Type Clinicians Facility Department ID 2023-04-02 Inpatient ER MARCO A, [facility] [id number] [facility] 10:45:15 RAVI 2022-06-10 Outpatient [facility] [id number] [place] 11:16:21 [id number] [facility] 2022-06-08 Outpatient [facility] [id number] [place] 09:20:16 [id number] [facility] 2021-12-03 Outpatient [facility] [id number] [place] 07:33:37 [id number] [facility] 2021-12-01 Outpatient [facility] [id number] [place] 09:56:40 [id number] [facility] 2021-11-02 Outpatient ALEX, [facility] [id number] [place] 01:03:08 VIVIANE [id number] [facility] 2021-10-25 Outpatient MARCEL, [facility] [id number] [place] 09:30:26 GLENDA [id number] [facility] 2021-10-21 Outpatient [facility] [id number] [place] 07:58:51 [id number] [facility] 2021-09-15 Outpatient [facility] [id number] [place] 15:17:24 [facility] 2021 Outpatient MARCEL, [facility] [id number] [place] 11:21:03 GLENDA [facility] 2021-09-07 Outpatient [facility] [id number] [place] 15:23:01 [facility] 2021-09-07 Outpatient LILI, [facility] [id number] [place] 09:26:54 [facility] 2023-05-03 2023-05-03 Outpatient BRO Farfan RADI [id number] [facility] 11:40:00 11:40:[address] [facility] 2023-05-03 2023-05-03 Outpatient Carlosanel_A [facility] [id number] [place] 00:00:00 00:00:00 [id number] [facility] 2023-05-03 2023-05-03 [place] [id number] [place] 00:00:00 00:00:00 [id number] [facility] 2023-05-03 2023-05-03 Ravi Moya [facility] [place] [place] - [id number] [place] 00:00:00 00:00:00 Carter Strickland MD: [id number] ro Urolog [facility] [address], [place] [address] , Ph. 2023-04-30 2023-04-30 Outpatient Hananel_[place] [facility] [place] [id number] [place] 00:00:00 00:00:00 [id number] [facility] 2023-04-29 2023-04-29 Outpatient Hananel_A [facility] U [id number] [place] 00:00:00 00:00:00 [id number] [facility] 2023-04-04 2023-04-04 Outpatient Hananel_A [facility]U [id number] [place] 00:00:00 00:00:00 [id number] [facility] 2023-04-02 2023-04-02 Outpatient ER CASSIE SOARES [facility] [id number] 08:[facility] 18:42:00 [facility] 2023-04-02 2023-04-02 [facility] N[facility] [id number] [facility] 08:25:00 18:42:00 [facility] 2023-04-[address] [facility] [id number] [facility] 10:09:00 10:46:[address] [facility] 2023-04-02 2023-04-[address] [facility] [id number] 09:30:00 10:16:[address] [facility] 2023-04-02 2023-04-02 Travel [facility] [id number] [facility] Results Test Description Test Time Test Comments Results Result Comments Source - XR ABDOMEN 1 V 2023-05-03 12:50:00 [facility] 1955 Sex: M Patient Name: ESTEPHANIE HUNTER Unit No: [id number] EXAMS: CPT CODE: [id number] XR ABDOMEN 1 V 32149 EXAM: Abdominal x-ray, 1 view Dictation location: H10 INDICATION: Kidney stone COMPARISON: None DISCUSSION: Frontal images of the abdomen are submitted. A right double-J ureteral stent is in place. There are 2 calcific densities overlying the interpolar right kidney, measuring up to 2 mm. A 6 mm calcific density projects near the distal ureteral portion of the right of the ureteral stent. The bowel gas pattern is nonobstructive. No evidence of intra-abdominal free air is seen. No acute bony abnormalities are identified. IMPRESSION: 1. Calcific densities overlying the right kidney measuring up to 2 mm, suggestive of renal stones. 2. A 6 mm calcific density projecting near the distal ureteral portion of the right double-J ureteral stent is nonspecific and could reflect a ureteral stone or a phlebolith. at 1250 Reported and signed by: John An MD CC: Ravi Strickland MD Technologist: Jami Branch RT(R) Transcrpt Date/Tm/Trnsp: 05/03/2023 (1250) [email or web address] Orig Print D/T: S: 05/03/2023 (1253) [facility] NAME: ESTEPHANIE HUNTER [id number] [facility] PHYS: KRISTINE. [place] [address] : 1955 AGE: 67 SEX: M LOC: [id number] PHONE #: [phone] EXAM DATE: 05/03/2023 STATUS: REG CLI FAX #: [phone] RADIOLOGY NO: PAGE 1 Signed Report Urinalysis macro (dipstick) panel - Urine 2023-05-03 10:30:2 6 Test Item Value Reference Range Interpretation Comme nts leukocytes (test code = leukocytes) NEGATIVE urobilinogen (test code = urobilinogen) 0.2 protein (test code = protein) NEGATIVE pH (test code = pH) 5 blood (test code = blood) NEGATIVE specific gravity (test code = specific gravity) 1.015 ketone (test code = ketone) NEGATIVE bilirubin (test code = bilirubin) NEGATIVE glucose (test code = glucose) NEGATIVE color (test code = color) YELLOW clarity (test code = clarity) CLEAR nitrite (test code = nitrite) NEGATIVE [place] [facility] NON-SPECIFIC UP TO 1 [id number] 10:48:07 [facility] : 1955 Sex: MThis is a non- reportable study with no Radiologist dictation. Please refer to your PACS to review images, or Doc Flowsheets for documentation on studies without images.
[2023-06-03 08:09] LABS: Absolute Lymphocytes (CBC) 1.7 K/uL (0.7-4.9); Hematocrit 44.3 % (39.6-49.0); Lymphocytes % 21.4 % (15.3-44.8); MCV 83.4 fL (80-100); MPV 8.1 fL (7.6-11.3); Platelets 253 thou/uL (152-406); RBC Red Blood Cell Count 5.32 M/uL (4.33-5.43)
[2023-06-03 08:13] LABS: Protime INR 1.1
[2023-06-03 08:20] LABS: Potassium 4.1 mEq/L (3.5-5.1)
[2023-06-03] MEDS ORDERED: PHENAZOPYRIDINE 100MG TAB PO ONE (08:27)
[2023-06-03 10:19] LABS: Specific Gravity 1.006 (1.005-1.030); Urine Bacteria <20 /HPF (<20); Urine Bilirubin NEGATIVE (Negative); Urine Blood 3+ (OVER) (Negative); Urine Clarity Extremely Turbid (Clear); Urine Color Colorless (Yellow); Urine Glucose NEGATIVE (Negative); Urine Mucus Slight /HPF (None Seen); Urine Protein 1+ (Negative); Urine RBC >50 /HPF (None Seen); Urine Urobilinogen Normal (Normal); Urine pH 5.5 (5.0-7.0)
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
[2023-06-03 11:30] VITALS: TEMP 98
[2023-06-03 11:40] VITALS: BP 168/68; O2SAT 98
== END 2023-06-03 11:20 | disposition home or self-care (01) ==
LOC: ER 07:24
DX: N20.1 Calculus of ureter (principal); Z87.442 Personal history of urinary calculi
CPT/HCPCS: 36415; 80048; 81001; 85025; 85610; 85730; 87086; 87088; 96374; 96375; 99284

== ENCOUNTER 2024-06-19 16:37 | Inpatient (IN) | payer OTHER ==
[2024-06-19] MEDS ORDERED: ONDANSETRON 4 MG/2 ML VIAL ONE (17:01)
[2024-06-19] MEDS ORDERED: MORPHINE 4 MG/ML SYR ONE (17:02)
[2024-06-19 17:26] LABS: Absolute Basophils 0.1 K/uL (0-0.5); Absolute Eosinophils 0.1 K/uL (0-0.5); Absolute Lymphocytes (CBC) 1.5 K/uL (0.7-4.9); Absolute Monocytes 0.7 K/uL (0.1-1.3); Absolute Neutrophil 12.2 K/uL (1.8-8.0); Basophils % 0.9 % (0-1.3); Eosinophils % 0.4 % (0-4.4); Hematocrit 50.1 % (39.6-49.0); Hemoglobin 17.2 g/dL (13.6-17.9); Lymphocytes % 10.1 % (15.3-44.8); MCH 29.2 pg (27.0-35.0); MCHC 34.3 g/dL (32.0-36.0); MCV 85.4 fL (80-100); MPV 8.5 fL (7.6-11.3); Monocytes % 4.7 % (3.3-12.3); Neutrophils % 83.9 % (41.7-73.7); Nucleated Red Blood Cells % 0.3 % (0-0); Platelets 271 thou/uL (152-406); RBC Red Blood Cell Count 5.87 M/uL (4.33-5.43); Red Cell Distribution Width 12.8 % (12.1-15.2)
[2024-06-19 17:40] LABS: Albumin 4.1 g/dL (3.4-5.0); Albumin/Globulin Ratio 0.9 (1.1-1.8); Anion Gap 10.1 mEq/L (5.0-15.0); Bilirubin Total 0.7 mg/dL (0.2-1.0); Globulin 4.5 g/dL (2.3-3.5); Potassium 4.1 mEq/L (3.5-5.1); Protein, Total 8.6 g/dL (6.4-8.2)
--- NOTE | 2024-06-19 18:19 | RAD REPORT ---
EXAMINATION: CT ABDOMEN AND PELVIS WITH CONTRAST CLINICAL INDICATION: Abdominal pain TECHNIQUE: CT abdomen and pelvis was performed, after the administration of 100 cc Isovue-300.. Sagit nely and coronal reconstructions were obtained. One or more of the following dose reduction techniques were used: Automated exposure control, adjustment of the mA and kV according to patient si ze, and iterative reconstruction. Unless otherwise specified, incidental findings do not require dedicated imaging follow-up. [id number]. Oral contrast was not given which limits evaluation of bowel and appendix. COMPARISON: 2022 FINDINGS: Liver, spleen, pancreas, and adrenals appear unremarkable. Tiny bilateral renal calculi. No hydronephrosis. Stomach is fluid-filled and distended. Jejunum portion of ileum moderately dilated. Ventral hernia to the left of midline above the level of the iliac crests: Contains a portion of small bowel. The bowel is dilated right before it enters the hernia. The exiting loop is normal caliber. Large left inguinal hernia contains sigmoid colon. Moderate to large right inguinal hernia contains f at Prostate gland moderately markedly enlarged Lung granulomas IMPRESSION: Small bowel obstruction likely secondary to a ventral hernia. Large left inguinal hernia contains colon. Moderate to large right inguinal hernia contains fat
[2024-06-19 18:31] LABS: Specific Gravity > 1.030 (1.005-1.030); Sqamous Epithelial <5 /HPF (None Seen); Urine Bacteria None Seen /HPF (<20); Urine Bilirubin NEGATIVE (Negative); Urine Blood Negative (Negative); Urine Clarity Turbid (Clear); Urine Color Yellow (Yellow); Urine Crystals Unidentified Few /HPF (None Seen); Urine Culture Reflex Order NOT NEEDED; Urine Glucose NEGATIVE (Negative); Urine Ketones TRACE (Negative); Urine Microscopic Reflex YN ORDER UMIC; Urine Mucus 3+ /HPF (None Seen); Urine Nitrite NEGATIVE (Negative); Urine Protein 1+ (Negative); Urine Urobilinogen 2+ (Normal); Urine WBC <5 /HPF (<5); Urine Yeast (Budding) Trace /HPF (None Seen); Urine pH 6.5 (5.0-7.0)
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
[2024-06-19] MEDS ORDERED: ONDANSETRON 4 MG/2 ML VIAL IV PRN (19:18)
[2024-06-19] MEDS ORDERED: ACETAMINOPHEN 325 MG TABLET PO PRN (19:18)
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
[2024-06-19 21:32] VITALS: BMI 27.4
[2024-06-19] MEDS ORDERED: D5 0.45 NS 1,000 ML IV ONE (21:38)
[2024-06-19] MEDS: D5 0.45 NS 1,000 ML IV SCH (21:44)
[2024-06-20 05:25] LABS: Absolute Eosinophils 0.1 K/uL (0-0.5); Absolute Lymphocytes (CBC) 1.7 K/uL (0.7-4.9); Absolute Monocytes 0.8 K/uL (0.1-1.3); Absolute Neutrophil 10.6 K/uL (1.8-8.0); Basophils % 0.2 % (0-1.3); Eosinophils % 0.6 % (0-4.4); Hematocrit 42.9 % (39.6-49.0); Hemoglobin 14.7 g/dL (13.6-17.9); Lymphocytes % 13.1 % (15.3-44.8); MCH 29.3 pg (27.0-35.0); MCHC 34.3 g/dL (32.0-36.0); MCV 85.4 fL (80-100); MPV 8.3 fL (7.6-11.3); Monocytes % 5.9 % (3.3-12.3); Neutrophils % 80.2 % (41.7-73.7); Platelets 242 thou/uL (152-406); RBC Red Blood Cell Count 5.02 M/uL (4.33-5.43); Red Cell Distribution Width 13.2 % (12.1-15.2)
[2024-06-20 05:47] LABS: Albumin 3.1 g/dL (3.4-5.0); Albumin/Globulin Ratio 0.9 (1.1-1.8); Anion Gap 8.9 mEq/L (5.0-15.0); Bilirubin Total 0.8 mg/dL (0.2-1.0); Globulin 3.5 g/dL (2.3-3.5); Potassium 3.9 mEq/L (3.5-5.1); Protein, Total 6.6 g/dL (6.4-8.2)
[2024-06-20] MEDS ORDERED: NA CHLORIDE 0.9% 100 ML ONE (07:39)
[2024-06-20] MEDS ORDERED: D5 0.45 NS 1,000 ML IV ONE (07:39)
[2024-06-20] MEDS ORDERED: CEFTRIAXONE 1000 MG/VIAL ONE (07:39)
[2024-06-20] MEDS: CEFTRIAXONE 1,000 MG in NA CHLORIDE 0.9% 50 ML IVPB SCH (09:00)
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
[2024-06-20] MEDS: Ringers Lactate 1,000 ML IV ONE ×2 (17:40→20:15)
[2024-06-20] MEDS ORDERED: ROCURONIUM 50 MG/5 ML VIAL IV ONE (18:36)
[2024-06-20] MEDS ORDERED: propofoL 200 MG/20 ML VIAL IV ONE (18:36)
[2024-06-20] MEDS ORDERED: MIDAZOLAM HCL 2 MG/2 ML INJ ONE (18:37)
[2024-06-20] MEDS: SUCCINYLCHOLINE 20 MG/ML (10 ML) IV ONE (18:37)
[2024-06-20] MEDS ORDERED: FENTANYL CITR 250 MCG/5 ML ONE (18:37)
[2024-06-20] MEDS: LIDOCAINE HCL/EPINEPHRINE 20 ML MDV ONE (19:24)
[2024-06-20] MEDS ORDERED: NEOSTIGMINE 1 MG/ML -10 ML VIAL ONE (20:20)
[2024-06-20] MEDS ORDERED: GLYCOPYRROLATE 0.2 MG/ML SYR ONE (20:20)
--- NOTE | 2024-06-20 20:28 | P.OP ---
Preoperative diagnosis: Small Bowel Obstruction / Ventral Hernia Postoperative diagnosis: Small Bowel Obstruction / Ventral Hernia Primary procedure: Laparoscopic Ventral Hernia Repair with mesh Anesthesia: GETA + Local Estimated blood loss: <10cc Specimen: None Findings: Incarcerated Small Bowel Hernia in periumbil, Bilateral inguinal hernias, Complications: None Implants: Bard Ventralite ST 11.4cm Round, Sorbafix x 45 Transferred to: Recovery Room Condition: Good
[2024-06-20] MEDS: HYDROMORPHONE HCL 1 MG/ML INJ ONE (21:25)
[2024-06-21] MEDS: MORPHINE 2 MG/ML SYR IV PRN (01:06)
--- NOTE | 2024-06-21 03:49 | OP ---
Date of Procedure: 06/20/2024 Surgeon: Gonsalo Handley MD, Preoperative Diagnosis: Small bowel obstruction/ventral hernia. Postoperative Diagnosis: Small bowel obstruction/ventral hernia. Procedure Performed: 1.Laparoscopic ventral hernia repair with mesh. 2.Extensive adhesiolysis laparoscopically. Anesthesia: General endotracheal plus local 1% lidocaine. Estimated Blood Loss: 10 cc. Specimen: None. Findings: Incarcerated small bowel in the periumbilical hernia with adipose tissue. Significant int raabdominal adhesions with severe scar throughout the entire abdomen. Bilateral inguinal hernias wer e noted as well. Complications: None. Implants: Bard Ventralight ST mesh with Echo positioning System, 11.4 cm round mesh, utilized SorbaF ix absorbable fixation tacks x45. Disposition: The patient was transferred to recovery room in good condition. Procedure In Detail: After informed consent was obtained, the patient was brought to the operating r oom, prepped and draped in the usual sterile fashion. After adequate anesthesia was achieved, I anes thetized an area in the right upper quadrant down to the subcutaneous tissues. A 5 mm surgical optic al trocar was introduced in the abdomen without incident or complication. Insufflation obtained to 1 5 mmHg. At this time, no injury to vital structures upon entry into the abdomen. Additional trocar was placed in the left upper quadrant. This was similarly anesthetized and sharply incised. A 5 mm trocar placed under direct visualization. Additional trocar was placed in the left mid abdomen, this was 12 mm trocar, placed under direct visualization without incident or complication. At this point , the procedure performed was extensive adhesiolysis using LigaSure device to remove all adhesions be tween the abdominal wall which were blocking my access to the periumbilical region. However, signifi cant intraabdominal adhesions remained. At this point, I circumferentially dissected out the small b owel within the umbilical incarcerated hernia and dissected this down, ultimately reducing the hernia to the normal anatomic position. The small bowel appeared viable without any ischemic changes. At this point, I swept back all preperitoneal fat and deployed 11.[address] mesh with Ech o positioning System in the center portion of defect, secured to the anterior abdominal wall using 45 double-crown type orientation SorbaFix absorbable fixation screws with good apposition of the mesh. At this point, I closed the 12 mm trocar site without incident or complication and desufflated the a bdomen under direct visualization without incident or complications. Remaining trocars were all irri gated and closed with interrupted lana. At this point, a sterile dressing placed over top. The p atient tolerated the procedure without incident or complication and transferred to PACU in good condi tion. All counts were correct at the end of the case. ELIEZER/IFTIKHAR Voice ID: [id number] Report ID: [id number]
[2024-06-21 08:20] LABS: Absolute Basophils 0.1 K/uL (0-0.5); Absolute Lymphocytes (CBC) 1.1 K/uL (0.7-4.9); Absolute Monocytes 0.8 K/uL (0.1-1.3); Absolute Neutrophil 9.4 K/uL (1.8-8.0); Basophils % 0.5 % (0-1.3); Eosinophils % 0.3 % (0-4.4); Hematocrit 43.9 % (39.6-49.0); Hemoglobin 14.9 g/dL (13.6-17.9); Lymphocytes % 9.8 % (15.3-44.8); MCH 29.2 pg (27.0-35.0); MCV 85.7 fL (80-100); MPV 8.3 fL (7.6-11.3); Monocytes % 6.7 % (3.3-12.3); Neutrophils % 82.7 % (41.7-73.7); Platelets 238 thou/uL (152-406); RBC Red Blood Cell Count 5.12 M/uL (4.33-5.43); Red Cell Distribution Width 13.1 % (12.1-15.2)
[2024-06-21 08:35] LABS: Anion Gap 7.8 mEq/L (5.0-15.0); Potassium 3.8 mEq/L (3.5-5.1)
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
[2024-06-21] MEDS: HYDROCODONE/APAP 5/325 MG TAB PO PRN (22:40)
[2024-06-21] MEDS: TAMSULOSIN 0.4 MG SR CAP PO SCH (22:40)
[2024-06-22 07:27] LABS: Absolute Eosinophils 0.1 K/uL (0-0.5); Absolute Lymphocytes (CBC) 1.2 K/uL (0.7-4.9); Absolute Monocytes 0.9 K/uL (0.1-1.3); Absolute Neutrophil 7.1 K/uL (1.8-8.0); Basophils % 0.2 % (0-1.3); Eosinophils % 0.7 % (0-4.4); Hematocrit 38.6 % (39.6-49.0); Hemoglobin 13.4 g/dL (13.6-17.9); Lymphocytes % 12.7 % (15.3-44.8); MCH 29.5 pg (27.0-35.0); MCHC 34.6 g/dL (32.0-36.0); MCV 85.3 fL (80-100); MPV 8.5 fL (7.6-11.3); Monocytes % 9.8 % (3.3-12.3); Neutrophils % 76.6 % (41.7-73.7); Platelets 216 thou/uL (152-406); RBC Red Blood Cell Count 4.53 M/uL (4.33-5.43)
[2024-06-22 07:43] LABS: Anion Gap 7.5 mEq/L (5.0-15.0); Potassium 3.5 mEq/L (3.5-5.1)
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
[2024-06-22] MEDS ORDERED: ALBUTEROL 2.5 MG/3 ML NEB SOL NEB SCH (11:00)
[2024-06-22] MEDS: IPRATROPIUM BROM 0.5MG/2.5ML NEB SCH (11:40)
[2024-06-22] MEDS: ALBUTEROL 2.5 MG/3 ML NEB SOL NEB SCH (11:40)
[2024-06-22] MEDS ORDERED: ALBUTEROL 2.5 MG/3 ML NEB SOL NEB PRN (11:56)
--- NOTE | 2024-06-22 12:40 | RAD REPORT ---
EXAMINATION: ONE VIEW CHEST XR CLINICAL INDICATION: Male, 68 years old.,wheeze, eval pulm edema TECHNIQUE: Frontal chest projection is submitted. Examination is limited by patient positioning and t echnique. COMPARISON: 09/18/2017 FINDINGS: Progressive patchy right mid to lower lung airspace opacity. Elevation of the right hemidiaphragm aga in seen. No pneumothorax or sizable effusion. The heart is normal in size. Mediastinal contours are unremarkable. IMPRESSION: Progressive patchy right mid to lower lung airspace opacities, concerning for pneumonia.
[2024-06-22] MEDS: POTASSIUM CL SA 10 MEQ TAB PO ONE (20:43)
[2024-06-23 05:29] LABS: Absolute Eosinophils 0.1 K/uL (0-0.5); Absolute Lymphocytes (CBC) 1.7 K/uL (0.7-4.9); Absolute Monocytes 0.8 K/uL (0.1-1.3); Absolute Neutrophil 5.1 K/uL (1.8-8.0); Basophils % 0.4 % (0-1.3); Eosinophils % 1.7 % (0-4.4); Hematocrit 38.9 % (39.6-49.0); Hemoglobin 13.5 g/dL (13.6-17.9); Lymphocytes % 22.4 % (15.3-44.8); MCH 29.8 pg (27.0-35.0); MCHC 34.7 g/dL (32.0-36.0); MCV 85.8 fL (80-100); MPV 8.6 fL (7.6-11.3); Neutrophils % 65.5 % (41.7-73.7); Platelets 213 thou/uL (152-406); RBC Red Blood Cell Count 4.53 M/uL (4.33-5.43)
[2024-06-23 05:50] LABS: AST/SGOT 11 U/L (15-37); Albumin 2.7 g/dL (3.4-5.0); Albumin/Globulin Ratio 0.8 (1.1-1.8); Alkaline Phosphatase 72 U/L (45-117); BUN Blood Urea Nitrogen 8 mg/dL (7-18); Bicarbonate 27 mEq/L (21-32); Bilirubin Total 0.9 mg/dL (0.2-1.0); Globulin 3.6 g/dL (2.3-3.5); Glomerular Filtration Rate 90 ml/min (=/>90); Glucose Level 105 mg/dL (74-106); Magnesium 2.2 mg/dL (1.6-2.4); Protein, Total 6.3 g/dL (6.4-8.2); Sodium Level 135 mEq/L (136-145)
[2024-06-23 06:01] LABS: ALT/SGPT < 14 U/L (16-61)
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
[2024-06-24 07:22] VITALS: O2SAT 96
--- NOTE | 2024-06-24 15:45 | P.DS ---
Admission Date: 06/19/24 Discharge Date: 06/24/24 Disposition: ROUTINE DISCHARGE Discharge Condition: GOOD Reason for Admission: SBO Vital Signs/Physical Exam: Temp Pulse Resp BP Pulse Ox 97.2 F 63 20 100/55 L 92 06/24/24 12:00 06/24/24 12:00 06/24/24 12:00 06/24/24 12:00 06/24/24 12:00 Laboratory Data at Discharge: WBC 7.70 thou/uL (4.3-10.9) 06/23/24 04:31 Hgb 13.5 g/dL (13.6-17.9) L 06/23/24 04:31 Hct 38.9 % (39.6-49.0) L 06/23/24 04:31 Plt Count 213 thou/uL (152-406) 06/23/24 04:31 Sodium 135 mEq/L (136-145) L 06/23/24 04:31 Potassium 4.0 mEq/L (3.5-5.1) D 06/23/24 04:31 BUN 8 mg/dL (7-18) 06/23/24 04:31 Creatinine 0.92 mg/dL (0.70-1.30) 06/23/24 04:31 Glucose 105 mg/dL (74-106) 06/23/24 04:31 Magnesium 2.2 mg/dL (1.6-2.4) 06/23/24 04:31 Total Bilirubin 0.9 mg/dL (0.2-1.0) 06/23/24 04:31 AST 11 U/L (15-37) L 06/23/24 04:31 ALT < 14 U/L (16-61) L 06/23/24 04:31 Alkaline Phosphatase 72 U/L (45-117) 06/23/24 04:31 Lipase 33 U/L (13-75) 06/19/24 17:13 Home Medications: Hydrocodone 5/APAP 325 [[place] 5/325*] 1 tab PO Q8H PRN #15 tab 06/24/24 Tamsulosin [Flomax*] 0.4 mg PO BEDTIME 30 Days #30 cap 06/24/24 New Medications: Tamsulosin [Flomax*] 0.4 mg PO BEDTIME 30 Days #30 cap Hydrocodone 5/APAP 325 [[place] 5/325*] 1 tab PO Q8H PRN #15 tab PRN Reason: Pain Scale 5-7 (Moderate) Physician Discharge Instructions: Physician discharge instructions: Patient presents with LLQ abdominal pain associated with nausea/vomiting secondary to small bowel obstruction secondary to incarcerated ventral hernia. CT abdomen with findings consistent with small bowel obstruction secondary to ventral hernia. CT also noted large left inguinal hernia containing colon, mod- large right inguinal hernia containing fat, mod-marked prostatomegaly. Patient was evaluated by Dr. Handley, general surgeon, and underwent laparoscopic ventral hernia repair with mesh on 06/20. Patient did well post-operatively. Patient's diet was slowly advanced as tolerated. Patient ambulating and passing gas on day of discharge. Patient was feeling better, pain improved, tolerating soft diet without issues and was deemed stable for discharge. Recommend soft food diet for next 3-5 days. Can slowly ease back in regular diet. Avoid fatty/greasy foods. During his hospitalization, patient reported some difficulty urinating mildly at home (urinary hesitancy, nocturia) over last few months. Post-op, patient reported inability to void with some intermittent dribbling. He reports not being on any home medications and has not seen a urologist yet. Given his symptoms and enlarged prostate noted on CT, patient was started on flomax and had valdez placed on 06/21. He felt significant relief after valdez placement and has been able to void at least ~5L since placement. Valdez was dc'd 06/24, and he was able to void without issue. Post void residual was ~60ml. Recommend following up with PCP for further discussion and to consider following up with a urologist in the near future for further evaluation New prescription for flomax 0.4 mg sent on discharge. Advised not to stop taking flomax until otherwise instructed by Urologist/PCP. He was started on empiric antibiotics given suspicious UA. He remained afebrile without leukocytosis for > 48 hours. No evidence of ongoing infection. No further antibiotics warranted on discharge. Medications: Flomax 0.4 mg at bedtime [place] 5/325 as needed for pain Follow up: PCP 3-[address] Handley in office in ~1 week Urology (Locally, Dr. Blair King is located in [place]) Please call to schedule / confirm appointments No heavy lifting > 10 lbs for 4-6 weeks or otherwise instructed by Dr. Handley Do not submerge wound underwater. Okay to shower with running water. Diet: Regular Activity: No lifting more than 10 lbs Followup: Gonsalo Handley MD [ACTIVE - CAN ADMIT] - NONE,NONE [Primary Care Provider] - Blair King [ACTIVE - CAN ADMIT] - (Follow up for inability to void)
[2024-06-24 16:31] VITALS: BP 111/63; TEMP 97.4
== END 2024-06-24 16:30 | disposition home or self-care (01) | DRG 337 ==
LOC: ER 16:37 → ERHOLD 19:18 → 2ND 06-20 13:44
PROVIDERS: ADMIT Family Medicine; ATTEND Hospitalist
PROC: 0WUF4JZ Supplement Abdominal Wall with Synthetic Substitute, Percutaneous Endoscopic Approach (ICD-10-PCS; 2024-06-20)
PROC: 0DNW4ZZ Release Peritoneum, Percutaneous Endoscopic Approach (ICD-10-PCS; principal; 2024-06-20 18:00)
PROC: 0T9B70Z Drainage of Bladder with Drainage Device, Via Natural or Artificial Opening (ICD-10-PCS; 2024-06-21)
DX: K43.6 Other and unspecified ventral hernia with obstruction, without gangrene (principal); F32.A Depression, unspecified; F41.9 Anxiety disorder, unspecified; N40.1 Benign prostatic hyperplasia with lower urinary tract symptoms; R33.8 Other retention of urine; F17.210 Nicotine dependence, cigarettes, uncomplicated; Z91.51 Personal history of suicidal behavior
CPT/HCPCS: 36415; 71045; 74177; 80048; 80053; 81001; 83690; 83735; 85025; 94640; 94760; 96374; 96375; 99285; C1781; J0696; J1171; J2250; J2270; J2405; J2704; J2710; J3010; J7120; J7613; J7644; J7799; Q9967